=== PATIENT | female | born 1975 | race Caucasian/White ===

== ENCOUNTER 2017-01-05 11:45 | Emergency (ER) | payer MEDICARE, MEDICAID ==
[2017-01-05 11:48] VITALS: BMI 28.7
--- NOTE | 2017-01-05 13:26 | C.PDOC ---
History Of Present Illness 41 y/o female presents to the ED with complains of right shoulder pain. Pt reports falling down stairs yesterday landing and hitting her right shoulder against radiator. Pain is constant, 8/10, worse today than yesterday and worse with raising arm. Pt also reports constant, throbbing pain to right hand, mostly at 5th digit. Denies weakness, numbness, head injury, headache, neck pain , dizziness or any other complaints. Time Seen by Provider: 01/05/17 12:08 Chief Complaint (Nursing): Upper Extremity Problem/Injury History Per: Patient History/Exam Limitations: no limitations Onset/Duration Of Symptoms: Hrs Current Symptoms Are (Timing): Still Present Quality: "Pain" Severity: Severe Pain Scale Rating Of: 8 Exacerbating Factor(s): Movement Recent travel outside of the [place]: No Past Medical History Reviewed: Historical Data, Nursing Documentation, Vital Signs Vital Signs: Last Vital Signs Temp 98.2 F 01/05/17 13:44 Pulse 72 01/05/17 13:44 Resp 18 01/05/17 13:44 BP 120/75 01/05/17 13:44 Pulse Ox 99 01/05/17 13:44 - Medical History PMH: Anxiety, Bronchitis, Depression, Fractures, Gastritis, Hypercholesterolemia Surgical History: Endoscopy - [facility] Procedures BUNIONECTOMY NEC (05/07/14) INJECT/INFUSE NEC (06/06/14) REPAIR OF HAMMER TOE (05/07/14) Family History: States: Unknown Family Hx - Social History Hx Alcohol Use: Yes Hx Substance Use: No Review Of Systems Except As Marked, All Systems Reviewed And Found Negative. Gastrointestinal: Negative for: Vomiting Musculoskeletal: Positive for: Shoulder Pain (right), Other (right hand pain, mostly at 5th digit). Negative for: Neck Pain Neurological: Negative for: Headache, Dizziness Physical Exam - Physical Exam Appears: Non-toxic, No Acute Distress Skin: Warm, Dry, No Rash Head: Atraumatic, Normacephalic Neck: Normal, Normal ROM, No Midline Cervical Tenderness, No Paracervical Tenderness, Supple Chest: Symmetrical, No Tenderness Cardiovascular: Rhythm Regular, No Murmur Respiratory: Normal Breath Sounds, No Rales, No Rhonchi, No Wheezing Gastrointestinal/Abdominal: Soft, No Tenderness Extremity: Normal ROM, Tenderness (right 5th digit), Capillary Refill (<2 seconds), Other (slight dip on right shoulder at AC joint site) Neurological/Psych: Oriented x3, Normal Motor, Normal Sensation ED Course And Treatment O2 Sat by Pulse Oximetry: 100 (room air) Pulse Ox Interpretation: Normal Medical Decision Making Medical Decision Making: Plan: XR shoulder Dx: AC separation. Discharged with pain meds and instructed to follow up with ortho. Disposition Counseled Patient/Family Regarding: Studies Performed, Diagnosis, Need For Followup, Rx Given - Disposition Referrals: Juli London MD [Staff Provider] - Disposition: HOME/ ROUTINE Disposition Time: 13:24 Condition: STABLE Prescriptions: traMADol/Acetaminophen [Ultracet 37.5/325 mg] 1 tab PO TID PRN #15 tab PRN Reason: pain Instructions: Shoulder Sprain (ED), RICE Therapy (ED) Forms: General Discharge Instructions - POA Present On Arrival: None - Clinical Impression Clinical Impression: Separation of acromioclavicular joint, Contusion, hand - Scribe Statement The provider has reviewed the documentation as recorded by the Jay Moura Provider Attestation: All medical record entries made by the Jay were at my direction and personally dictated by me. I have reviewed the chart and agree that the record accurately reflects my personal performance of the history, physical exam, medical decision making, and the department course for this patient. I have also personally directed, reviewed, and agree with the discharge instructions and disposition.
[2017-01-05 13:45] VITALS: BP 120/75; PULSE 72; RESP 18; TEMP 98.2
--- NOTE | 2017-01-05 14:42 | RAD ---
PROCEDURE: Radiographs of the Right Shoulder HISTORY: fall COMPARISON: No prior. FINDINGS: BONES: Normal. No fracture. JOINTS: Normal. Glenohumeral and acromioclavicular joints preserved. No osteoarthritis. SOFT TISSUES: Normal. OTHER FINDINGS: None. IMPRESSION: No evidence of acute fracture or dislocation.
--- NOTE | 2017-01-05 14:42 | RAD ---
PROCEDURE: Right small finger radiographs. HISTORY: fall COMPARISON: None. TECHNIQUE: AP radiograph of the right hand, as well as spot oblique and lateral images of small finger were obtained. FINDINGS: RIGHT SMALL FINGER: Normal right small finger, without fracture or focal lesion. Remainder of the right hand (as seen on the AP view) grossly unremarkable. JOINTS: Normal. SOFT TISSUES: Normal. OTHER FINDINGS: None. IMPRESSION: Normal right small finger radiographs.
[2017-01-05 16:38] VITALS: O2SAT 100
== END 2017-01-05 13:48 | disposition home or self-care (01) ==
LOC: C.ER 11:45
DX: S43.101A Unspecified dislocation of right acromioclavicular joint, initial encounter (principal); S60.221A Contusion of right hand, initial encounter; W10.9XXA Fall (on) (from) unspecified stairs and steps, initial encounter

== ENCOUNTER 2018-09-09 15:58 | Emergency (ER) | payer MEDICARE, MEDICAID ==
[2018-09-09 15:58] VITALS: BMI 32.1
[2018-09-09 16:13] VITALS: RESP 18; O2SAT 100
[2018-09-09 17:25] LABS: BASO % 0.6 % (0.0-2.0); EOS # 0.1 K/uL (0.0-0.7); EOS % 1.2 % (0.0-4.0); HEMOGLOBIN 13.5 g/dL (11.0-16.0); LYMPH # 2.4 K/uL (1.0-4.3); MEAN CELL VOLUME 88.7 fL (81.0-99.0); MEAN CORPUSCULAR HEMOGLOBIN 29.9 pg (27.0-31.0); MEAN CORPUSCULAR HGB CONC 33.7 g/dL (33.0-37.0); MEAN PLATELET VOLUME 8.1 fL (7.2-11.7); MONO # 0.5 K/uL (0.0-0.8); MONO % 6.8 % (0.0-10.0); NEUT # 4.5 K/uL (1.8-7.0); NEUT % 59.4 % (50.0-75.0); NRBC % 0.2 % (0.0-2.0); RBC 4.52 Mil/uL (3.80-5.20); RED CELL DISTRIBUTION WIDTH 13.9 % (11.5-14.5); WHITE BLOOD COUNT 7.5 K/uL (4.8-10.8)
[2018-09-09 17:35] LABS: ALB/GLOB RATIO 1.3 (1.0-2.1); ALBUMIN 4.8 g/dL (3.5-5.0); ALT/SGPT 28 U/L (9-52); AST/SGOT 30 U/L (14-36); BLOOD UREA NITROGEN 18 mg/dL (7-17); CALCIUM 9.1 mg/dl (8.6-10.4); GFR NON-AFRICAN AMERICAN > 60; LIPASE 41 U/L (23-300)
--- NOTE | 2018-09-09 17:42 | C.PDOC ---
History Of Present Illness 43 y/o female, with history of gastritis and drinks occasionally (with last drink 2 days ago), comes in complaining of nausea and vomiting after eating rice for lunch today. Patient states she Initially threw up food, but then later had 3 episodes of vomiting clear liquid with blood. Patient also complains of throat pain. Denies abdominal pain or other associated symptoms. Patient reports no bowel movement today but the other day she had dark stool. no fever or chills. Time Seen by Provider: 09/09/18 16:50 Chief Complaint (Nursing): GI Problem History Per: Patient History/Exam Limitations: no limitations Onset/Duration Of Symptoms: Hrs Current Symptoms Are (Timing): Still Present Past Medical History Reviewed: Historical Data, Nursing Documentation, Vital Signs Vital Signs: Last Vital Signs Temp 98.2 F 09/09/18 16:10 Pulse 64 09/09/18 16:10 Resp 18 09/09/18 16:10 BP 125/84 09/09/18 16:10 Pulse Ox 100 09/09/18 16:10 - Medical History PMH: Anxiety, Bronchitis, Depression, Fractures, Gastritis, Hypercholeste rolemia, Kidney Stones Denies: Asthma, Bipolar Disorder, Cardia Arrhythmia, CHF, Colonic Polyps, CO PD, Crohn's Disease, Diverticulitis, Emphysema, Gall Bladder Disease, HTN, Mitral Valve Prolapse, Pancreatitis, Peripheral Edema, Pneumonia, Post Traumatic Stress Disorder, Pulmonary Embolism, Chronic Kidney Disease, Schizophrenia, Sleep Apnea Surgical History: Endoscopy Denies: Appendectomy, CABG, Carotid Endarterectomy, Cholecystectomy, Coronary Stent, Pacemaker, Tonsillectomy - [facility] Procedures BUNIONECTOMY NEC (05/07/14) INJECT/INFUSE NEC (06/06/14) REPAIR OF HAMMER TOE (05/07/14) Family History: States: No Known Family Hx - Social History Hx Alcohol Use: Yes Hx Substance Use: No Review Of Systems Constitutional: Negative for: Fever, Chills ENT: Positive for: Throat Pain Cardiovascular: Negative for: Chest Pain Respiratory: Negative for: Cough, Shortness of Breath Gastrointestinal: Positive for: Nausea, Vomiting (clear liquid with blood). Negative for: Abdominal Pain Genitourinary: Negative for: Dysuria, Hematuria Skin: Negative for: Rash Physical Exam - Physical Exam Appears: Non-toxic, No Acute Distress Skin: Warm, Dry Head: Atraumatic, Normacephalic Eye(s): bilateral: Normal Inspection Oral Mucosa: Moist Neck: Supple Cardiovascular: Rhythm Regular, No Murmur Respiratory: Normal Breath Sounds, No Rales, No Rhonchi, No Wheezing Gastrointestinal/Abdominal: Soft, No Tenderness Extremity: Bilateral: Atraumatic, Normal Color And Temperature, Normal ROM Neurological/Psych: Oriented x3, Normal Speech ED Course And Treatment - Laboratory Results Result Diagrams: 09/09/18 17:19 09/09/18 17:19 Lab Results: Total Bilirubin 0.3 mg/dL (0.2-1.3) 09/09/18 17:19 AST 30 U/L (14-36) 09/09/18 17: ALT 28 U/L (9-52) 09/09/18 17: Alkaline Phosphatase 81 U/L (38-126) 09/09/18 17: Total Protein 8.6 g/dL (6.3-8.3) H 09/09/18 17: Albumin 4.8 g/dL (3.5-5.0) 09/09/18 17:19 Globulin 3.7 gm/dL (2.2-3.9) 09/09/18 17: Albumin/Globulin Ratio 1.3 (1.0-2.1) 09/09/18 17: Lipase 41 U/L (23-300) 09/09/18 17:19 O2 Sat by Pulse Oximetry: 100 (RA) Pulse Ox Interpretation: Normal Medical Decision Making Medical Decision Making: Plan: --Labs --Pepcid 20 mg IV --Zofran 4 mg IV --POC 1840 pt feeling much better, no episodes of vomiting in ed. abdomen soft, nd. nt. pt with normal labs, negative guaiac stool. soft tissue neck appears jordi on my read. will d/ chome with zofran and gi f/u Disposition Counseled Patient/Family Regarding: Studies Performed, Diagnosis, Need For Followup - Disposition Referrals: Manny Burgess MD [Medical Doctor] - Disposition: HOME/ ROUTINE Disposition Time: 18:41 Condition: IMPROVED Additional Instructions: Follow up with Dr Burgess (bearing inspector ) in the next -2 days. Eat bland plain foods. Take anti-nausea medication up to three times a day if needed. Return to ER for any worse symptoms or other concerns. Continue taking omeprazole. 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 - Scribe Statement The provider has reviewed the documentation as recorded by the Scribkillian Adames All medical record entries made by the Nydiaibkillian were at my direction and personally dictated by me. I have reviewed the chart and agree that the record accurately reflects my personal performance of the history, physical exam, medical decision making, and the department course for this patient. I have also personally directed, reviewed, and agree with the discharge instructions and disposition.
[2018-09-09 18:46] VITALS: BP 126/74; PULSE 68; TEMP 98.4
--- NOTE | 2018-09-10 15:38 | RAD ---
Neck soft tissue two views History: Neck pain. Comparison: None available. Findings: Cervical spine visualized from the C1 through C7 levels. Prominent disc space narrowing with anterior osteophyte formation at C5-6 level. No gross prevertebral soft tissue swelling. Impression: Degenerative changes. If pain persists, consider correlation with MR.
== END 2018-09-09 19:00 | disposition home or self-care (01) ==
LOC: C.ER 15:58
DX: R11.2 Nausea with vomiting, unspecified (principal)
CPT/HCPCS: 70360; 80053; 81025; 83690; 85025; 96374; 96375; 99284; G0328; J2405

== ENCOUNTER 2018-11-28 14:57 | Emergency (ER) | payer MEDICARE, MEDICAID ==
[2018-11-28 14:57] VITALS: BMI 30.8
[2018-11-28 15:26] VITALS: RESP 18; O2SAT 100
[2018-11-28] MEDS ORDERED: Dexamethasone 4 mg/1 ml IVP STA (16:21)
--- NOTE | 2018-11-28 16:26 | C.PDOC ---
History Of Present Illness 43 year old female presents to the with complaint of right-sided flank and back pain for the past 10 days. Patient describes the pain as sharp and was initially associated with nausea and vomiting. Patient states that the urine has stopped, but the pain has continued. She states that she has been experiencing dark urine. She describes the pain as worse with movement and twisting. She denies trauma, fever, abdominal pain, and GI bleeding. <Yara Harrison - Last Filed: 11/28/18 19:20> History Per: Patient History/Exam Limitations: no limitations Onset/Duration Of Symptoms: Days (10) Current Symptoms Are (Timing): Still Present Quality Of Discomfort: Sharp Previous Symptoms: Back Pain Associated Symptoms: Other (nausea and vomiting) Exacerbating Factor(s): Movement, Other (twisting) <Yara Harrison - Last Filed: 11/28/18 19:20> <Ruy Pa - Last Filed: 11/28/18 19:29> Time Seen by Provider: 11/28/18 15:38 Chief Complaint (Nursing): Back Pain Past Medical History Reviewed: Historical Data, Nursing Documentation, Vital Signs Vital Signs: Last Vital Signs Temp 98 F 11/28/18 15:26 Pulse 78 11/28/18 15:26 Resp 18 11/28/18 15:26 BP 120/82 11/28/18 15:26 Pulse Ox 100 11/28/18 15:26 - Medical History PMH: Anxiety, Bronchitis, Depression, Fractures, Gastritis, Kidney Stones Denies: Asthma, Bipolar Disorder, Cardia Arrhythmia, CHF, Colonic Polyps, COPD, Crohn's Disease, Diverticulitis, Emphysema, Gall Bladder Disease, HTN, Hypercholesterolemia, Mitral Valve Prolapse, Pancreatitis, Peripheral Edema, Pneumonia, Post Traumatic Stress Disorder, Pulmonary Embolism, Chronic Kidney Disease, Schizophrenia, Sleep Apnea Surgical History: Endoscopy Denies: Appendectomy, CABG, Carotid Endarterectomy, Cholecystectomy, Coronary Stent, Pacemaker, Tonsillectomy - [facility] Procedures BUNIONECTOMY NEC (05/07/14) INJECT/INFUSE NEC (06/06/14) REPAIR OF HAMMER TOE (05/07/14) Family History: States: Unknown Family Hx - Social History Hx Alcohol Use: Yes Hx Substance Use: No - Immunization History Hx Tetanus Toxoid Vaccination: No Hx Influenza Vaccination: No Hx Pneumococcal Vaccination: No <Yara Harrison - Last Filed: 11/28/18 19:20> Vital Signs: Last Vital Signs Temp 98.7 F 11/28/18 19:14 Pulse 76 11/28/18 19:14 Resp 18 11/28/18 19:14 BP 115/79 11/28/18 19:14 Pulse Ox 100 11/28/18 19:21 - [facility] Procedures BUNIONECTOMY NEC (05/07/14) INJECT/INFUSE NEC (06/06/14) REPAIR OF HAMMER TOE (05/07/14) <Ruy Pa - Last Filed: 11/28/18 19:29> Review Of Systems Constitutional: Negative for: Fever Gastrointestinal: Negative for: Nausea, Vomiting, Abdominal Pain, Hematochezia Genitourinary: Positive for: Other (dark urine). Negative for: Hematuria Musculoskeletal: Positive for: Back Pain (right sided flank and back pain ) <Yara Harrison - Last Filed: 11/28/18 19:20> Physical Exam - Physical Exam Appears: No Acute Distress Skin: Normal Color, Warm, Dry Head: Atraumatic, Normacephalic Neck: Normal ROM, Supple Chest: Symmetrical, No Deformity Cardiovascular: Rhythm Regular, No Murmur Respiratory: No Accessory Muscle Use, No Rales, No Rhonchi, No Wheezing Gastrointestinal/Abdominal: Soft, No Tenderness Back: CVA Tenderness (right-sided), No Vertebral Tenderness Extremity: Normal ROM, Capillary Refill (<2 seconds), No Swelling Neurological/Psych: Oriented x3, Normal Speech, Normal Cognition <Yara Harrison - Last Filed: 11/28/18 19:20> ED Course And Treatment - Laboratory Results Result Diagrams: 11/28/18 16:34 11/28/18 16:34 O2 Sat by Pulse Oximetry: 100 (in RA) - Other Rad CXR X-Ray: Interpreted by Me, Viewed By Me Interpretation: IMPRESSION: No active disease. - CT Scan/US Abdomen/Pelvis CT Other Rad Studies (CT/US): Interpreted By Me, Read By Radiologist CT/US Interpretation: IMPRESSION: There is a small approximately 2.5 mm nonobstructing calculus upper pole left kidney. Questionable layering hyperdense debris within the posterior margin of the urinary bladder. Clinical correlation with urinalysis. <Yara Harrison - Last Filed: 11/28/18 19:20> - Laboratory Results Result Diagrams: 11/28/18 16:34 11/28/18 16:34 Lab Results: Total Bilirubin 0.2 mg/dL (0.2-1.3) 11/28/18 16:34 AST 36 U/L (14-36) 11/28/18 16:34 ALT 26 U/L (9-52) 11/28/18 16:34 Alkaline Phosphatase 63 U/L (38-126) 11/28/18 16:34 Total Protein 8.0 g/dL (6.3-8.3) 11/28/18 16:34 Albumin 4.5 g/dL (3.5-5.0) 11/28/18 16:34 Globulin 3.5 gm/dL (2.2-3.9) 11/28/18 16:34 Albumin/Globulin Ratio 1.3 (1.0-2.1) 11/28/18 16:34 Urine Color Yellow (YELLOW) 11/28/18 16:34 Urine Clarity Hazy (Clear) 11/28/18 16:34 Urine pH 7.0 (5.0-8.0) 11/28/18 16:34 Ur Specific [place] 1.026 (1.003-1.030) 11/28/18 16:34 Urine Protein 1+ mg/dL (NEGATIVE) H 11/28/18 16:34 Urine Glucose (UA) Normal mg/dL (Normal) 11/28/18 16:34 Urine Ketones Negative mg/dL (NEGATIVE) 11/28/18 16:34 Urine Blood Negative (NEGATIVE) 11/28/18 16:34 Urine Nitrate Negative (NEGATIVE) 11/28/18 16:34 Urine Bilirubin Negative (NEGATIVE) 11/28/18 16:34 Urine Urobilinogen Normal mg/dL (0.2-1.0) 11/28/18 16:34 Ur Leukocyte Esterase Trace Denise/uL (Negative) 11/28/18 16:34 Urine WBC (Auto) 4 /hpf (0-5) 11/28/18 16:34 Urine RBC (Auto) 4 /hpf (0-3) H 11/28/18 16:34 Ur Squamous Epith Cells 7 /hpf (0-5) H 11/28/18 16:34 Urine Bacteria Occ (<OCC) H 11/28/18 16:34 Urine HCG, Qual Negative (NEGATIVE) 11/28/18 16:34 Urine HCG, Qual Negative (NEGATIVE) 11/28/18 16:34 <Ruy Pa - Last Filed: 11/28/18 19:29> Medical Decision Making Medical Decision Making: Plan: Abdomen/Pelvis CT and CXR ordered for patient Labs ordered with CMP, CBC, UA, and urine culture Patient given decadron and toradol On re-exam, the patient reports improvement of symptoms. Lungs are CTA, heart is RRR, abdomen is soft, non-tender and tolerating PO well. Pt is ambulatory in the ED with steady gait. Follow up with the medical doctor within 1-2 days. Return if worsened. <Yara Harrison - Last Filed: 11/28/18 19:20> Medical Decision Making: @ d/c pt asking for further eval and pain meds asked by nursing to come to bedside to re-re-eval pt pt with digitally reproducable pain intercostal @ R lateral posterior rib area for "weeks" pain is localized and digitally and positionally reproducable, without rash NOT associated with renal colic pt applying heat therapies persistently to the area and taking Naproxyn 500 BID without relief. [place]- [place] usually taking Klonopin 0.5 mg TID but has run out, cannot explain why not refilled attempted to explain costochondritic pain to pt, pt became loud, verbally abusive, argumentative, demanding to speak w supervisory personnel Offered but refused Klonopin PO for anxiety this MD unable to redirect pt and unable explain to stop heat therapies and change to ice therapies. A/P: Costochondritis ice/NSAIDS NOT renal colic Anxiety: poorly controlled, off extensive Klonopin TID regime for ? reason <Ruy Pa Last Filed: 11/28/18 19:29> Disposition - Disposition Disposition Time: 19:07 <Yara Harrison - Last Filed: 11/28/18 19:20> Doctor Will See Patient In The: Office Counseled Patient/Family Regarding: Studies Performed, Diagnosis <Ruy Pa Filed: 11/28/18 19:29> - Disposition Referrals: Cristopher Nunez MD [Staff Provider] - Disposition: HOME/ ROUTINE Condition: IMPROVED Additional Instructions: Follow up with the medical doctor within 1-2 days. Return if worsened. Prescriptions: Naproxen [Naprosyn] 500 mg PO BID #20 tab Tamsulosin [Flomax] 0.4 mg PO DAILY #10 cap Instructions: Renal Colic (DC) Forms: [facility] (Welsh), Work Excuse - Clinical Impression Clinical Impression: Renal colic, Costochondritis - PA / INFORMATION CLERK BROKERAGE / Resident Statement MD/DO has reviewed & agrees with the documentation as recorded. (Kindra Warren) - Scribe Statement The provider has reviewed the documentation as recorded by the Scribe (Kindra Warren) All medical record entries made by the Scribe were at my direction and personally dictated by me. I have reviewed the chart and agree that the record accurately reflects my personal performance of the history, physical exam, medical decision making, and the department course for this patient. I have also personally directed, reviewed, and agree with the discharge instructions and disposition. <Yara Harrison - Last Filed: 11/28/18 19:20>
[2018-11-28 16:41] LABS: BASO % 0.5 % (0.0-2.0); EOS # 0.1 K/uL (0.0-0.7); EOS % 1.1 % (0.0-4.0); HEMOGLOBIN 12.9 g/dL (11.0-16.0); LYMPH # 2.1 K/uL (1.0-4.3); MEAN CORPUSCULAR HEMOGLOBIN 30.4 pg (27.0-31.0); MEAN CORPUSCULAR HGB CONC 33.3 g/dL (33.0-37.0); MEAN PLATELET VOLUME 8.1 fL (7.2-11.7); MONO # 0.5 K/uL (0.0-0.8); MONO % 6.7 % (0.0-10.0); NEUT % 64.7 % (50.0-75.0); RBC 4.25 Mil/uL (3.80-5.20); RED CELL DISTRIBUTION WIDTH 14.2 % (11.5-14.5); WHITE BLOOD COUNT 7.8 K/uL (4.8-10.8)
[2018-11-28 16:45] LABS: MEAN CELL VOLUME 91.3 fL (81.0-99.0)
[2018-11-28 17:02] LABS: SQUAMOUS EPITHIAL 7 /hpf (0-5); URINE BILIRUBIN NEGATIVE (NEGATIVE); URINE BLOOD NEGATIVE (NEGATIVE); URINE CLARITY Hazy (Clear); URINE COLOR Yellow (YELLOW); URINE GLUCOSE (UA) NORMAL (Normal); URINE LEUKOCYTE ESTERASE TRACE Leu/uL (Negative); URINE PROTEIN 1+ mg/dL (NEGATIVE); URINE UROBILINOGEN NORMAL mg/dL (0.2-1.0)
[2018-11-28 17:07] LABS: ALB/GLOB RATIO 1.3 (1.0-2.1); ALBUMIN 4.5 g/dL (3.5-5.0); ALT/SGPT 26 U/L (9-52); AST/SGOT 36 U/L (14-36); BLOOD UREA NITROGEN 18 mg/dL (7-17); CALCIUM 9.3 mg/dl (8.6-10.4); GFR NON-AFRICAN AMERICAN > 60
[2018-11-28 17:08] LABS: HCG,QUALITATIVE URINE NEGATIVE (NEGATIVE)
[2018-11-28 17:10] LABS: URINE BACTERIA OCC (<OCC)
[2018-11-28] MEDS ORDERED: Dexamethasone 4 mg/1 ml ONE (17:12)
--- NOTE | 2018-11-28 17:54 | RAD ---
Date of service: 11/28/2018 HISTORY: PAIN TO THE RIGHT UPPER BACK COMPARISON: No prior. TECHNIQUE: Chest PA and lateral views FINDINGS: LUNGS: No active pulmonary disease. PLEURA: No significant pleural effusion identified. No pneumothorax apparent. CARDIOVASCULAR: No aortic atherosclerotic calcification present. Normal cardiac size. No pulmonary vascular congestion. OSSEOUS STRUCTURES: No significant abnormalities. VISUALIZED UPPER ABDOMEN: Normal. OTHER FINDINGS: None. IMPRESSION: No active disease.
--- NOTE | 2018-11-28 19:02 | CT ---
Date of service: 11/28/2018 PROCEDURE: CT ABDOMEN AND PELVIS HISTORY: RIGHT FLANK PAIN, DARK URINE. R/O STONE COMPARISON: None. TECHNIQUE: Contiguous axial images of the abdomen and pelvis performed without oral or intravenous contrast material. Additional 2D sagittal and coronal reformats generated. Reformats generated. Radiation dose: Total exam DLP = 816.57 mGy-cm. This CT exam was performed using one or more of the following dose reduction techniques: Automated exposure control, adjustment of the mA and/or kV according to patient size, and/or use of iterative reconstruction technique. FINDINGS: LOWER THORAX: Heart size within range of normal. No significant pericardial effusion. Small hiatal hernia. Lung bases clear. LIVER: Liver exhibits relatively normal size measuring over nearly 18 cm in CC dimension. No obvious hepatic mass collection or calcification. GALLBLADDER AND BILE DUCTS: Gallbladder physiologically distended. No evidence of intraluminal gallbladder calculi. PANCREAS: Pancreas appears unremarkable without mass collection or calcification. SPLEEN: Spleen exhibits normal size and attenuation pattern without mass collection or calcification. The ADRENALS: No adrenal lesions. KIDNEYS AND URETERS: Kidneys demonstrate relatively symmetric size. There is a small approximately 2.5 mm nonobstructing calculus seen in the upper pole collecting system left kidney. No evidence of additional calculi. No evidence of hydronephrosis. BLADDER: The urinary bladder is incompletely distended. No evidence of intraluminal urinary bladder calculi. Questionable layering debris within the posterior margin of the urinary bladder. Clinical correlation recommended. REPRODUCTIVE: Unremarkable as visualized. APPENDIX: Normal appendix BOWEL: Evaluation of the bowel is somewhat limited due to the lack of oral contrast material. The stomach is partially distended with food debris liquid and air. Visualized loops of small bowel exhibit normal contour and caliber. No evidence of acute mechanical small bowel obstruction. Stool and air seen throughout the large bowel. PERITONEUM: Unremarkable. No fluid collection. No free air. Small fat containing umbilical hernia. LYMPH NODES: Unremarkable. No enlarged lymph nodes. VASCULATURE: Unremarkable. No aortic aneurysm. No significant aortic atherosclerotic calcification or mural plaque present. BONES: No acute compression fractures no retropulsed fragments. Minor degenerative spondylosis L5-S1 level. Probable hemangioma within the L3 segment. OTHER FINDINGS: None. IMPRESSION: There is a small approximately 2.5 mm nonobstructing calculus upper pole left kidney. Questionable layering hyperdense debris within the posterior margin of the urinary bladder. Clinical correlation with urinalysis.
[2018-11-28 19:15] VITALS: BP 115/79; PULSE 76; TEMP 98.7
== END 2018-11-28 19:30 | disposition home or self-care (01) ==
LOC: C.ER 14:57
DX: N20.0 Calculus of kidney (principal); Z87.442 Personal history of urinary calculi; M94.0 Chondrocostal junction syndrome [Tietze]
CPT/HCPCS: 71046; 74176; 80053; 81001; 82550; 84703; 85025; 87086; 96374; 96375; 99285; J1100; J1885